=== PATIENT | male | born 1970 | race Hispanic/Latino ===

== ENCOUNTER 2021-09-06 11:43 | Emergency (ER) | payer SELFPAY ==
--- NOTE | 2021-09-06 11:51 | ED.GENADULT ---
HPI - General Adult General Chief complaint: Dizziness Stated complaint: dizziness Mode of arrival: ambulatory Limitations: language barrier (Patient speaks some Martiniquais, son interpreting) History of Present Illness HPI narrative: 49-year-old male presents concern for dizziness. Reports feeling of being on a roller coaster . Reports this started today. Reports history of similar issues when he had an ear infection. He denies any headache, weakness in any extremity, difficulty swallowing, difficulty speaking. He denies taking any [id number] medications for this. Reports occasional nausea with the dizziness. Reports the dizziness is sometimes made worse when he turns his head. complaint: Dizziness Related Data Allergies Allergy/AdvReac Type Severity Reaction Status Date / Time No Known Allergies Allergy Unverified 09/06/21 11:46 Review of Systems Review of Systems: CONSTITUTIONAL: Denies malaise, chills, sweats, or fever. EYES: Denies visual changes ENT: Denies rhinorrhea, congestion, sinus pain, or sore throat. Reports ear fullness CARDIOVASCULAR: Denies chest pain, palpitations, or edema. RESPIRATORY: Denies cough or dyspnea. GASTROINTESTINAL: Reports occasional nausea. Denies vomiting MUSCULOSKELETAL: Denies myalgia. NEUROLOGIC: Denies numbness, weakness, or headache. Reports dizziness All systems reviewed & are unremarkable except as noted in HPI and below PMFSH Comments At time of signature, agree with nursing past medical, surgical, social and family history. There is no relevant family history pertinent to the presenting complaint Exam Narrative: GENERAL: Well-appearing, well-nourished, and in no acute distress. HEAD: Normocephalic, atraumatic. EYES: PERRLA, sclera clear, and EOMI. No nystagmus. ENT: Nares clear, turbinates pink, no rhinorrhea or epistaxis. Mucous membranes moist. TM pearly gruber with all light reflex bilaterally with effusion noted; no tragal tenderness. Oropharynx without erythema or lesions. Tonsils not enlarged and without exudate. NECK: Supple. No lymphadenopathy. No jugular venous distension, thyromegaly, or carotid bruits. Carotids were easily palpable bilaterally. CHEST: No respiratory distress. Clear to auscultation. No bony deformities, no asymmetry. Speaks in full sentences. HEART: Regular rate and rhythm. No murmur heard. Normal peripheral pulses. EXTREMITIES: Normal range of motion. No edema. Normal strength and sensation. SKIN: Warm, dry, no visible rash. NEURO: Alert and oriented x3. No focal deficits. Cranial nerves II through XII grossly intact. No upper or lower extremity drift PSYCH: Normal mood and affect Course Course Emergency Course: Patient is aware of diagnosis, understands and agrees to treatment plan. Anticipatory guidance given. Patient agrees to follow-up as directed and is aware of reasons to seek care at the emergency department. Portions of this record may have been created with voice recognition software Level of Care: Express Care Visit Vital Signs Vital signs: Reviewed. Medical Decision Making MDM Narrative Medical decision making narrative: Patients vertigo is felt to be likely peripheral in origin. there is no diplopia, dysarthria, or dyshphagia. Patients gait is stable and there are no focal neurological deficits on exam. Risk for central causes has been reviewed. Patient felt likely reasonable for continued outpatient management and risks are felt to outweigh benefits for further imaging studies at this time Critical Care Time Critical Care Time Critical Care Time: No Discharge Plan Discharge Clinical Impression: Acute dysfunction of both eustachian tubes Patient Disposition: Home, Self-Care Condition: Stable Instructions: Fluid In The Ear (Serous Otitis Media) (ED) Additional Instructions: Recommend antihistamine such as Benadryl at night time and Zyrtec or Jyothi during the day until symptoms improve Flonase nasal spray, 1 spr
[2021-09-06 11:52] VITALS: BP 127/85; PULSE 65; RESP 16; TEMP 36.6; O2SAT 97
[2021-09-06 11:56] VITALS: BP 127/85; PULSE 65; RESP 16; TEMP 36.6; O2SAT 97
== END 2021-09-06 12:07 | disposition home or self-care (01) ==
PROVIDERS: Emergency Provider Nurse Practitioner
DX: H69.93 Unspecified Eustachian tube disorder, bilateral (principal)
CPT/HCPCS: 99213; G0463

== ENCOUNTER 2023-06-01 19:17 | Emergency (ER) | payer SELFPAY ==
--- NOTE | 2023-06-01 19:25 | ED.URI ---
HPI - URI/Sore Throat General Chief Complaint: Dizziness Stated Complaint: Dizziness/Nausea Time Seen by Provider: 06/01/23 19:25 Source: patient, RN notes reviewed and old records reviewed Mode of arrival: ambulatory Limitations: language barrier (Patient speaks Citizen Of [place] predominantly understands some [place] son here to interpret) History of Present Illness HPI Narrative: 52 year old male who presents to [facility] care accompanied by son with complaints of being dizzy and having some nausea started today around 1400. Patient reports that he has had the same feeling in the past and he had ear infection. Patient reports no sinus congestion or drainage or any cough, denies any fevers or chills. Patient states that dizziness increases if he moves his head quickly, patient denies any chest pain or any shortness of breath. Patient denies any facial tingling with face symmetrical,moves all extremities on own power without difficulty. MD elicited complaint: other (dizziness) Pertinent past history: other (eustachian tube dysfunction and ear infection) Onset (ago): day(s) (today) Pain scale (0-10): 0 Able to tolerate fluids by mouth: Yes Exacerbating factors: changing head position Treatments prior to arrival: none Related Data Allergies Allergy/AdvReac Type Severity Reaction Status Date / Time No Known Allergies Allergy Unverified 09/06/21 11:46 Review of Systems Review of Systems: CONSTITUTIONAL: Denies malaise, chills, sweats, or fever. EYES: Denies visual changes, redness, or discharge. ENT: Reports no rhinorrhea, congestion, sinus pain, otalgia or sore throat. CARDIOVASCULAR: Denies chest pain, palpitations, or edema. RESPIRATORY: Reports no cough.? Denies dyspnea. GASTROINTESTINAL: Denies abdominal pain, states some nausea, no vomiting,no diarrhea SKIN: Denies rash or itching. MUSCULOSKELETAL: Denies myalgia. NEUROLOGIC: Denies headache reports dizziness All systems reviewed & are unremarkable except as noted in HPI and below PMFSH Past Medical History Medical History (Updated 06/02/23 @ 00:01 by Liseth Garcia) Eustachian tube dysfunction Otitis media Social History Social History (Updated 06/04/23 @ 19:08 by Melly Cha NP) Smoking status: Never smoker Alcohol intake: current Alcohol use details: rare social Substance use type: does not use Living arrangements: with family Gender identity (if verbalized by the patient): Male Comments At time of signature, agree with nursing past medical, surgical, social and family history. There is no relevant family history pertinent to the presenting complaint Exam Narrative: GENERAL: Well-appearing, well-nourished, and in no acute distress. HEAD: Normocephalic EYES: PERRLA, conjunctivae clear ENT: Nares clear, turbinates edematous and erythematous, clear discharge. Mucous membranes moist. TM pearly gruber with dull light reflex bilaterally; no tragal tenderness. Oropharynx erythematous without lesions. Tonsils not enlarged and without exudate, no drooling, no hoarseness, no trismus, uvula midline. NECK: Supple. No lymphadenopathy CHEST: Clear to auscultation, breath sounds equal. No wheezing, rhonchi, rales, or stridor. No respiratory distress, speaks in full sentences.SAO2 99% on room air HEART: Regular rate and rhythm. No murmur heard. SKIN: Warm, dry, no rash. NEURO: Alert and oriented x3. dizziness with position changes PSYCH: Normal mood and affect Course Course Emergency Course: Patient is aware of diagnosis, understands and agrees to treatment plan.? Anticipatory guidance given.? Patient agrees to follow-up as directed and is aware of reasons to seek care at the emergency department. Portions of this record may have been created with voice recognition software Level of Care: Express Care Visit Vital Signs Vital signs: Vital Signs Temperature 36.1 C L 06/01/23 19:28 Pulse Rate 63 06/01/23 19:28
[2023-06-01 19:28] VITALS: BP 141/86; PULSE 63; RESP 16; TEMP 36.1; O2SAT 99
== END 2023-06-01 20:07 | disposition home or self-care (01) ==
PROVIDERS: Emergency Provider Registered Nurse
DX: H69.93 Unspecified Eustachian tube disorder, bilateral (principal); Z20.822 Contact with and (suspected) exposure to COVID-19
CPT/HCPCS: 87426; 99213; C9803; G0463

== ENCOUNTER 2024-07-01 13:38 | Emergency (ER) | payer SELFPAY ==
[2024-07-01 14:18] VITALS: BP 154/84; PULSE 67; RESP 16; TEMP 36.6; O2SAT 98
[2024-07-01 14:40] VITALS: BP 149/86; PULSE 66
[2024-07-01 14:42] VITALS: BP 151/86; PULSE 90
[2024-07-01 14:44] VITALS: BP 151/92; PULSE 80
--- NOTE | 2024-07-01 14:49 | ED.DIZZY ---
HPI - Dizziness General Chief Complaint: Dizziness Stated Complaint: Earache, Dizzy, Nausea Time Seen by Provider: 07/01/24 14:49 Source: patient, RN notes reviewed and old records reviewed Mode of arrival: ambulatory Limitations: no limitations History of Present Illness HPI Narrative: Patient presents with complaints of a sensation of fullness to the bilateral ears, dizziness. He reports symptoms began this morning upon awakening. He reports that he has had this happened 2 other times, both times had an ear infection. He denies any fever, chills, sweats. He denies any injury or trauma. He denies any cough or runny nose. No other concerns or complaints today Related Data Allergies Allergy/AdvReac Type Severity Reaction Status Date / Time No Known Allergies Allergy Unverified 07/01/24 14:28 Review of Systems Review of Systems: All systems reviewed & are unremarkable except as noted in HPI and below Constitutional: Constitutional: Reports no additional constitutional complaints ENT: Reports system reviewed and no additional complaints, except as documented, Reports as per HPI and Reports otalgia Cardiovascular: Cardiovascular: Reports as per HPI and Reports no additional cardiovascular complaints Respiratory: Respiratory: Reports as per HPI and Reports no additional respiratory complaints Gastrointestinal: Gastrointestinal: Reports no additional gastrointestinal complaints Neurologic: Reports vertigo and Reports dizziness [facility] Past Medical History Medical History Eustachian tube dysfunction Otitis media Social History Social History Smoking status: Never smoker Alcohol intake: current Alcohol use details: rare social Substance use type: does not use Living arrangements: with family Gender identity (if verbalized by the patient): Male Comments At the time of my signature, I reviewed and agree with the nursing past medical, surgical, social, and family history. There is no relevant family history pertinent to the patient complaint. Exam Const: General: cooperative, no acute distress, alert and awake Orientation/consciousness: oriented to person, oriented to place and oriented to time HENMT: Head: normal to inspection Ears: TM abnormal erythematous on the left and with fluid behind the TM bilateral Resp: Effort & Inspection: normal respiratory effort and able to speak in complete sentences Auscultation: clear to auscultation bilaterally, no crackles, no rales, no rhonchi and no wheezes Cardio: Palpation: normal PMI Rate: regular rate Rhythm: regular rhythm Heart sounds: S1 normal heart sound present and S2 normal heart sound present Neuro: General: oriented to person, oriented to place and oriented to time Cranial nerves: Yes CN's II-XII intact bilaterally Psych: Appearance: grossly normal Thought process: Normal thought process present Insight: Good insight present (Psych) Judgement: Good judgement present (Psych) Course Course Level of Care: Express Care Visit Vital Signs Vital signs: Vital Signs Temperature 97.8 F 07/01/24 14:18 Pulse Rate 67 07/01/24 14:18 Respiratory Rate 16 07/01/24 14:18 Blood Pressure 154/84 H 07/01/24 14:18 Pulse Oximetry 98 07/01/24 14:18 Oxygen Delivery Room Air 07/01/24 14:18 Temperature 97.8 F 07/01/24 14:18 Pulse Rate 80 07/01/24 14:44 Respiratory Rate 16 07/01/24 14:18 Blood Pressure 151/92 H 07/01/24 14:44 Pulse Oximetry 98 07/01/24 14:18 Oxygen Delivery Room Air 07/01/24 14:18 Reviewed MDM - Dizziness MDM Narrative Medical decision making narrative: Patient with no orthostasis. Observed ambulating with normal gait. Physical exam consistent with otitis media. Nontoxic appearing. Treat with p.o. antibiotics, prednisone burst. Patient advised to follow with primary care provider. Elevated blood pressure noted. Discharge instructions reviewed with patient, as well as provided in writing per nursing staff. The instructions also include specific and strict return/GO TO THE ER as well as f/u information. All questions have been answered, and the patient deny any further questions with discharge and discharge plan. Some parts of this dictation were generated by voice recognition software and may contain typographical and/or grammatical inaccuracies. Differential Diagnosis Differential diagnosis: Likely benign paroxysmal positional vertigo and orthostatic hypotension Medical Records Attestation: I reviewed the patient's medical records. Discharge Plan Discharge Clinical Impression: Otitis media Qualifiers: Otitis media type: suppurative Chronicity: acute Laterality: left Recurrence: not specified as recurrent Spontaneous tympanic membrane rupture: without spontaneous rupture Qualified Code(s): H66.002 - Acute suppurative otitis media without spontaneous rupture of ear drum, left ear Patient Disposition: Home, Self-Care Condition: Stable Instructions: Antibiotic Form, Ear Infection (ED) Additional Instructions: Take medications as prescribed. Follow with primary care provider. Emergency department for new or worsened Patient Language: Estonian Prescriptions: New amoxicillin 875 mg tablet 875 mg PO Q12H Qty: 20 0RF prednisone 50 mg tablet 50 mg PO DAILY Qty: 5 0RF meclizine 50 mg tablet 50 mg PO TID PRN (Reason: dizziness) Qty: 20 0RF Follow-up/Referrals: PHYSICIAN,HALL COORDINATOR [Primary Care Provider] - Stand Alone Forms: Work/School Release IP Time of Disposition: 15:05
== END 2024-07-01 15:12 | disposition home or self-care (01) ==
PROVIDERS: Emergency Provider Nurse Practitioner Family
DX: H66.002 Acute suppurative otitis media without spontaneous rupture of ear drum, left ear (principal)
CPT/HCPCS: 99213; G0463